=== PATIENT | female | born 1980 | race Caucasian/White ===

== ENCOUNTER 2020-02-28 08:10 | Outpatient (REF) | payer OTHER, SELFPAY ==
[2020-02-28 09:18] LABS: MANUAL DIFF FLAG NO
[2020-02-28 09:33] LABS: Basophils Percent Auto 0.3 % (0-2); Eosinophils Absolute Auto 0.1 X10*3/uL (0.0-0.4); Eosinophils Percent Auto 1.7 % (0-4); Hematocrit 39.4 % (37-47); Hemoglobin 13.3 g/dl (12.0-16.0); Imm Gran Abs Auto 0.01 X10*3/uL (0.00-0.03); Imm Gran Pct Auto 0.2 % (0.0-0.4); Lymphocytes Absolute Auto 1.9 X10*3/uL (1.2-4.9); Lymphocytes Percent Auto 31.3 % (20-40); Mean Corpuscular HGB Conc 33.8 g/dl (31.0-35.0); Mean Corpuscular Hemoglobin 30.8 pg (27.0-33.0); Mean Corpuscular Volume 91.2 fL (80-98); Mean Platelet Volume 10.5 fL (9.4-12.3); Monocytes Absolute Auto 0.4 X10*3/uL (0.1-1.2); Monocytes Percent Auto 7.2 % (2-11); Neutrophils Absolute Auto 3.5 X10*3/uL (2.0-8.3); Neutrophils Percent Auto 59.3 % (45-73); Platelet Count 270 X10*3/uL (160-400); Red Blood Count 4.32 X10*6/uL (4.20-5.50); Red Cell Distribution Width 12.7 % (11.0-16.0)
[2020-02-28 09:56] LABS: Alanine Aminotransferase 13 U/L (0-31); Albumin Level 3.8 g/dL (3.5-5.0); Alkaline Phosphatase 58 U/L (39-117); Anion Gap 11 (12-20); Aspartate Amino Transferase 16 U/L (5-31); Blood Urea Nitrogen 12 mg/dL (9-16); Calcium 8.5 mg/dL (8.4-10.2); Carbon Dioxide 26 mmol/L (22-29); Chloride 104 mmol/L (96-108); Cholesterol 184 mg/dL; Estimated Glomerular Filt Rate > 60; Glucose Fasting 81 mg/dL (60-99); HDL Cholesterol 75 mg/dL; LDL Cholesterol Calculated 101 mg/dl; Potassium 4.4 mmol/l (3.3-5.1); Sodium 137 mmol/L (135-145); Triglycerides 44 mg/dL
[2020-02-28 10:04] LABS: Free T4 (Free Thyroxine) 0.84 ng/dL (0.71-1.85); Thyroid Stimulating Hormone 2.36 uIU/mL (0.32-4.0)
== END 2020-02-28 08:11 | disposition home or self-care (01) ==
LOC: HO.LAB 08:10
PROVIDERS: PCP Internal Medicine; Visit Provider Internal Medicine
DX: E07.9 Disorder of thyroid, unspecified (principal); Z00.00 Encounter for general adult medical examination without abnormal findings
CPT/HCPCS: 36415; 80053; 80061; 84439; 84443; 85025

== ENCOUNTER 2020-04-06 14:23 | Outpatient (REF) | payer OTHER, SELFPAY ==
[2020-04-06 15:22] LABS: C Reactive Protein 0.26 mg/dL (< or = 0.50)
[2020-04-06 15:45] LABS: Vitamin D 25-OH Total 47.3 ng/mL (>30)
[2020-04-06 18:54] LABS: Vitamin B12 637 pg/mL (200-900)
== END 2020-04-06 14:24 | disposition home or self-care (01) ==
LOC: HO.LAB 14:23
PROVIDERS: PCP Internal Medicine; Visit Provider Internal Medicine
DX: R53.83 Other fatigue (principal); R53.1 Weakness
CPT/HCPCS: 36415; 82306; 82607; 86140

== ENCOUNTER 2020-06-26 12:01 | Outpatient (REF) | payer OTHER, SELFPAY ==
[2020-06-26 13:45] LABS: MANUAL DIFF FLAG NO
[2020-06-26 13:51] LABS: Basophils Percent Auto 0.3 % (0-2); Eosinophils Absolute Auto 0.1 X10*3/uL (0.0-0.4); Eosinophils Percent Auto 0.8 % (0-4); Hematocrit 37.4 % (37-47); Hemoglobin 12.3 g/dl (12.0-16.0); Imm Gran Abs Auto 0.02 X10*3/uL (0.00-0.03); Imm Gran Pct Auto 0.3 % (0.0-0.4); Lymphocytes Absolute Auto 2.2 X10*3/uL (1.2-4.9); Lymphocytes Percent Auto 30.8 % (20-40); Mean Corpuscular HGB Conc 32.9 g/dl (31.0-35.0); Mean Corpuscular Hemoglobin 30.2 pg (27.0-33.0); Mean Corpuscular Volume 91.9 fL (80-98); Mean Platelet Volume 10.3 fL (9.4-12.3); Monocytes Absolute Auto 0.5 X10*3/uL (0.1-1.2); Monocytes Percent Auto 6.5 % (2-11); Neutrophils Absolute Auto 4.4 X10*3/uL (2.0-8.3); Neutrophils Percent Auto 61.3 % (45-73); Platelet Count 285 X10*3/uL (160-400); Red Blood Count 4.07 X10*6/uL (4.20-5.50); Red Cell Distribution Width 12.3 % (11.0-16.0); White Blood Count 7.1 X10*3/uL (4.8-10.8)
[2020-06-26 14:06] LABS: Anion Gap 11 (12-20); Blood Urea Nitrogen 16 mg/dL (9-16); C Reactive Protein 1.33 mg/dL (< or = 0.50); Calcium 8.7 mg/dL (8.4-10.2); Carbon Dioxide 27 mmol/L (22-29); Chloride 103 mmol/L (96-108); Estimated Glomerular Filt Rate > 60; Glucose Random 74 mg/dL (60-115); Potassium 4.2 mmol/L (3.3-5.1); Sodium 137 mmol/L (135-145)
[2020-06-27 09:31] LABS: Thyroid Peroxidase Antibodies 114 IU/mL (<9)
== END 2020-06-26 12:02 | disposition home or self-care (01) ==
LOC: HO.10HDL 12:01
PROVIDERS: Visit Provider Internal Medicine
DX: E06.9 Thyroiditis, unspecified (principal); R49.9 Unspecified voice and resonance disorder
CPT/HCPCS: 36415; 80048; 85025; 86140; 86376

== ENCOUNTER 2020-07-03 12:18 | Outpatient (REF) | payer OTHER, SELFPAY ==
--- NOTE | ~2020-07-03 | US_ITS ---
EXAMINATION: US THYROID CLINICAL INFORMATION: Acute thyroiditis. COMPARISON: Nuclear medicine thyroid uptake scan dated 12/02/2016. TECHNIQUE: Linear transducer grayscale and color Doppler examination with attention to the region of the thyroid. FINDINGS: SIZE: Measurements of the thyroid lobes and nodules are given in sagittal, anteroposterior and transverse dimensions respectively. Right Thyroid Lobe: 4.3 x 1.5 x 1.1 cm, volume 3.8 mL. Parenchyma: The gland echotexture is homogeneous. Thyroid vascularity is normal. Left Thyroid Lobe: 4.6 x 1.5 x 1.2 cm, volume 4.2 mL. Parenchyma: The gland echotexture is homogeneous. Thyroid vascularity is normal. Isthmus: 0.2 cm in maximum AP dimension. No focal thyroid nodule is seen. NODES: No lymphadenopathy is seen in the tissue surrounding the thyroid gland. US/US thyroid IMPRESSION: Homogeneous thyroid parenchyma with normal vascularity. No thyroid nodule or thyromegaly.
== END 2020-07-03 12:19 | disposition home or self-care (01) ==
LOC: HO.US 12:18
PROVIDERS: PCP Internal Medicine; Visit Provider Internal Medicine
DX: E06.0 Acute thyroiditis (principal)
CPT/HCPCS: 76536

== ENCOUNTER 2021-09-12 08:29 | Outpatient (REF) | payer OTHER, SELFPAY ==
[2021-09-12 08:42] LABS: MANUAL DIFF FLAG NO
[2021-09-12 09:56] LABS: Basophils Percent Auto 0.5 % (0-2); Eosinophils Absolute Auto 0.2 X10*3/uL (0.0-0.4); Eosinophils Percent Auto 2.7 % (0-4); Hematocrit 38.8 % (37.0-47.0); Hemoglobin 12.9 g/dl (12.0-16.0); Imm Gran Abs Auto 0.01 X10*3/uL (0.00-0.03); Imm Gran Pct Auto 0.2 % (0.0-0.4); Lymphocytes Absolute Auto 1.6 X10*3/uL (1.2-4.9); Lymphocytes Percent Auto 29.4 % (20-40); Mean Corpuscular HGB Conc 33.2 g/dl (31.0-35.0); Mean Corpuscular Hemoglobin 30.1 pg (27.0-33.0); Mean Corpuscular Volume 90.7 fL (80.0-98.0); Mean Platelet Volume 10.3 fL (9.4-12.3); Monocytes Absolute Auto 0.4 X10*3/uL (0.1-1.2); Monocytes Percent Auto 7.4 % (2-11); Neutrophils Absolute Auto 3.3 x10*3/uL (2.0-8.3); Neutrophils Percent Auto 59.8 % (45-73); Platelet Count 285 X10*3/uL (160-400); Red Blood Count 4.28 X10*6/uL (4.20-5.50); Red Cell Distribution Width 12.8 % (11.0-16.0); White Blood Count 5.5 X10*3/uL (4.8-10.8)
[2021-09-12 10:46] LABS: Alanine Aminotransferase 10 U/L (0-31); Albumin Level 3.9 g/dL (3.5-5.0); Alkaline Phosphatase 73 U/L (39-117); Anion Gap 11 (12-20); Aspartate Amino Transferase 14 U/L (5-31); Bilirubin Total 1.1 mg/dL (0.0-1.0); Blood Urea Nitrogen 13 mg/dL (9-16); Calcium 8.8 mg/dL (8.4-10.2); Carbon Dioxide 25 mmol/L (22-29); Chloride 109 mmol/L (96-108); Cholesterol 190 mg/dL; Estimated Glomerular Filt Rate > 60; Glucose Fasting 84 mg/dL (60-99); HDL Cholesterol 66 mg/dL; LDL Cholesterol Calculated 114 mg/dl; Potassium 4.2 mmol/L (3.3-5.1); Sodium 141 mmol/L (135-145); Total Protein 7.2 g/dL (6.5-8.0); Triglycerides 53 mg/dL
[2021-09-12 10:47] LABS: Thyroid Stimulating Hormone 1.89 uIU/mL (0.32-4.0); Vitamin D 25-OH Total 38.7 ng/mL (>30)
[2021-09-13 19:31] LABS: Thyroid Peroxidase Antibodies 105 IU/mL (<9)
== END 2021-09-12 08:30 | disposition home or self-care (01) ==
LOC: HO.LAB 08:29
PROVIDERS: PCP Internal Medicine; Visit Provider Internal Medicine
DX: Z00.00 Encounter for general adult medical examination without abnormal findings (principal); E06.9 Thyroiditis, unspecified
CPT/HCPCS: 36415; 80053; 80061; 82306; 84443; 85025; 86376

== ENCOUNTER 2022-01-30 14:38 | Outpatient (REF) | payer OTHER, SELFPAY ==
[2022-01-30 15:36] LABS: Influenza A PCR POSITIVE (Negative); Influenza B PCR NEGATIVE (Negative); Resp Syncy Virus RNA Qual PCR NEGATIVE (Negative); SARS COV2 PCR INHOUSE NEGATIVE (Negative)
== END 2022-01-30 14:39 | disposition home or self-care (01) ==
LOC: HO.LNP 14:38
PROVIDERS: Visit Provider Internal Medicine
DX: Z20.822 Contact with and (suspected) exposure to COVID-19 (principal); R50.9 Fever, unspecified
CPT/HCPCS: 0241U

== ENCOUNTER 2023-05-19 15:27 | Outpatient (REF) | payer OTHER, SELFPAY ==
[2023-05-19 17:03] LABS: Influenza A PCR NEGATIVE (Negative); Influenza B PCR NEGATIVE (Negative); Resp Syncy Virus RNA Qual PCR NEGATIVE (Negative); SARS COV2 PCR INHOUSE NEGATIVE (Negative)
== END 2023-05-19 15:28 | disposition home or self-care (01) ==
LOC: HO.LNP 15:27
PROVIDERS: Visit Provider Internal Medicine
DX: Z11.52 Encounter for screening for COVID-19 (principal); Z20.822 Contact with and (suspected) exposure to COVID-19; R05.9 Cough, unspecified; R53.83 Other fatigue
CPT/HCPCS: 0241U

== ENCOUNTER 2023-05-19 15:29 | Outpatient (REF) | payer OTHER, SELFPAY ==
[2023-05-19 15:50] LABS: MANUAL DIFF FLAG NO
[2023-05-19 16:51] LABS: Basophils Percent Auto 0.6 % (0-2); Eosinophils Absolute Auto 0.1 X10*3/uL (0.0-0.4); Eosinophils Percent Auto 2.2 % (0-4); Hematocrit 39.2 % (37.0-47.0); Hemoglobin 13.2 g/dl (12.0-16.0); Imm Gran Abs Auto 0.01 X10*3/uL (0.00-0.03); Imm Gran Pct Auto 0.2 % (0.0-0.4); Lymphocytes Absolute Auto 1.6 X10*3/uL (1.2-4.9); Lymphocytes Percent Auto 24.3 % (20-40); Mean Corpuscular HGB Conc 33.7 g/dl (31.0-35.0); Mean Corpuscular Hemoglobin 29.9 pg (27.0-33.0); Mean Corpuscular Volume 88.7 fL (80.0-98.0); Mean Platelet Volume 10.2 fL (9.4-12.3); Monocytes Absolute Auto 0.4 X10*3/uL (0.1-1.2); Monocytes Percent Auto 6.5 % (2-11); Neutrophils Absolute Auto 4.3 x10*3/uL (2.0-8.3); Neutrophils Percent Auto 66.2 % (45-73); Platelet Count 321 X10*3/uL (160-400); Red Blood Count 4.42 X10*6/uL (4.20-5.50); Red Cell Distribution Width 12.7 % (11.0-16.0); White Blood Count 6.5 X10*3/uL (4.8-10.8)
[2023-05-19 17:19] LABS: Anion Gap 11 (12-20); Blood Urea Nitrogen 11 mg/dL (9-16); Calcium 9.2 mg/dL (8.4-10.2); Carbon Dioxide 25 mmol/L (22-29); Chloride 104 mmol/L (96-108); Cholesterol 189 mg/dL (<200); Estimated Glomerular Filt Rate > 60; Glucose Random 70 mg/dL (60-115); HDL Cholesterol 67 mg/dL (>40); LDL Cholesterol Calculated 111 mg/dL (<100); Potassium 3.9 mmol/L (3.3-5.1); Sodium 136 mmol/L (135-145); Triglycerides 56 mg/dL (<150)
[2023-05-19 17:34] LABS: Free T4 (Free Thyroxine) 0.87 ng/dL (0.71-1.85); Thyroid Stimulating Hormone 0.93 uIU/mL (0.32-4.0); Vitamin D 25-OH Total 41.5 ng/mL (>30)
[2023-05-20 22:19] LABS: Thyroid Peroxidase Antibodies 118 IU/mL (<9)
== END 2023-05-19 15:30 | disposition home or self-care (01) ==
LOC: HO.LAB 15:29
PROVIDERS: Visit Provider Internal Medicine
DX: E55.9 Vitamin D deficiency, unspecified (principal); J30.1 Allergic rhinitis due to pollen; E06.9 Thyroiditis, unspecified
CPT/HCPCS: 36415; 80048; 80061; 82306; 84439; 84443; 85025; 86376

== ENCOUNTER 2024-10-20 09:40 | Outpatient (REF) | payer BC, SELFPAY ==
[2024-10-20 10:51] LABS: MANUAL DIFF FLAG NO
[2024-10-20 11:15] LABS: Hematocrit 36.4 % (37.0-47.0); Hemoglobin 12.1 g/dl (12.0-16.0); Imm Gran Abs Auto 0.02 X10*3/uL (0.00-0.03); Imm Gran Pct Auto 0.3 % (0.0-0.4); Lymphocytes Absolute Auto 1.7 X10*3/uL (1.2-4.9); Mean Corpuscular HGB Conc 33.2 g/dl (31.0-35.0); Mean Corpuscular Hemoglobin 29.2 pg (27.0-33.0); Mean Corpuscular Volume 87.9 fL (80.0-98.0); NRBC Abs Auto 0.000 X10*3/uL (0.0-0.012); NRBC Pct Auto 0.0 /100WBC (0.0-0.2); Platelet Count 273 X10*3/uL (160-400); Red Blood Count 4.14 X10*6/uL (4.20-5.50); White Blood Count 5.9 X10*3/uL (4.8-10.8)
[2024-10-20 11:35] LABS: Hemoglobin A1C 109.4311 umol/L; Total Hemoglobin (HGBA1C) 3299.5053 umol/L
[2024-10-20 11:46] LABS: Alanine Aminotransferase 12 U/L (0-31); Albumin Level 4.1 g/dL (3.5-5.0); Alkaline Phosphatase 77 U/L (39-117); Anion Gap 13 (12-20); Aspartate Amino Transferase 18 U/L (5-31); Blood Urea Nitrogen 12 mg/dL (9-16); Calcium 8.5 mg/dL (8.4-10.2); Carbon Dioxide 25 mmol/L (22-29); Chloride 105 mmol/L (96-108); Cholesterol 199 mg/dL (<200); Estimated Glomerular Filt Rate > 60; HDL Cholesterol 64 mg/dL (>40); Potassium 3.7 mmol/L (3.3-5.1); Sodium 139 mmol/L (135-145); Total Protein 7.4 g/dL (6.5-8.0); Triglycerides 65 mg/dL (<150)
[2024-10-20 12:06] LABS: Folate 10.4 ng/mL (> or = 4.0); Vitamin B12 427 pg/mL (200-900)
[2024-10-25 15:48] LABS: Vitamin D 25-OH, D2 <4 ng/mL; Vitamin D 25-OH, D3 40 ng/mL; Vitamin D 25-OH, Total 40 ng/mL (30-100)
[2024-10-27 16:48] LABS: Testosterone, Free 1.5 pg/mL (0.1-6.4)
[2024-11-01 07:44] LABS: Estradiol Ultra Sensitive 134 pg/mL
== END 2024-10-20 09:41 | disposition home or self-care (01) ==
LOC: HO.LAB 09:40
PROVIDERS: PCP Internal Medicine; Visit Provider Internal Medicine
DX: Z00.00 Encounter for general adult medical examination without abnormal findings (principal); E28.2 Polycystic ovarian syndrome; F32.81 Premenstrual dysphoric disorder; R53.83 Other fatigue; R35.89 Other polyuria; E06.9 Thyroiditis, unspecified; Z13.0 Encounter for screening for diseases of the blood and blood-forming organs and certain disorders involving the immune mechanism; Z13.220 Encounter for screening for lipoid disorders; Z13.1 Encounter for screening for diabetes mellitus
CPT/HCPCS: 36415; 80053; 80061; 82306; 82607; 82670; 82746; 83002; 83036; 84402; 84403; 84443; 85025

== ENCOUNTER 2024-10-20 09:40 | Outpatient (AMB) | payer BC, SELFPAY ==
--- NOTE | 2024-10-20 09:44 | A.OFFPC_ITS ---
Vital Signs 10/20/24 09:56 10/20/24 10:00 Height 5 ft 4.5 in Weight 172 lb BP 122/72 Blood Pressure Location Lt brachial Position Sitting Respiration 16 Pulse 57 Pulse Source Pulse Oximeter Temp 97.2 F Temp Source Temporal Artery Scan Pulse Oximetry (%) 99 Oxygen Delivery Method Room Air Intake Visit Reasons: Annual Compress Trucker Required: No Accompanied by: Self / Same As Patient Allergies Seasonale Allergy (Mild, Uncoded 10/20/24 09:58) Watery Eye shellfish Allergy (Mild, Uncoded 10/20/24 09:58) lip swelling Tobacco use date assessed: 10/20/24 HPI HPI Comments History of Present Illness Details The patient is a 44 year old female with a past medical history of thyroiditis, vitamin D deficiency, PCOS, rash, presenting for annual exam. History of abnormal TFTs. Gets mammo at [place]-September 2023 [facility]. Jan 2024 ROS CONSTITUTIONAL: Denies weight loss, fever and chills. HEENT: Denies changes in vision and hearing. RESPIRATORY: Denies SOB and cough. CV: Denies palpitations and CP GI: Denies abdominal pain, nausea, vomiting and diarrhea. : Denies dysuria and urinary frequency. MSK: Denies new myalgia and joint pain. SKIN: Denies rash and pruritus. NEUROLOGICAL: Denies headache PSYCHIATRIC: Denies recent changes in mood. PHYSICAL EXAM: GENERAL: Alert and oriented x 3. NAD EYES: EOMI. Anicteric. HENT: Moist mucous membranes. No scleral icterus. No cervical lymphadenopathy. LUNGS: Clear to auscultation bilaterally. CARDIOVASCULAR: Regular rate and rhythm. No murmur. No JVD. ABDOMEN: Soft, non-tender +bs EXTREMITIES: No edema. Non-tender. SKIN: No rashes or lesions. Warm. NEUROLOGIC: No focal neurological deficits. CN II-XII grossly intact PSYCHIATRIC: Cooperative. Appropriate mood and affect [facility] Social History Patient Tobacco Use Status: Never used Tobacco e-Cigarette/Vaping Use: Never Used Questionnaire AUDIT C Alcohol Use Questionnaire (AUDIT-C) 1. How often do you have a drink containing alcohol?: Never Total Score: 0 Physical exam (Primary Care) Vital Signs: Last Vital Signs Temp 97.2 F 10/20/24 10:00 Pulse 57 10/20/24 10:00 Resp 16 10/20/24 10:00 BP 122/72 10/20/24 10:00 Pulse Ox 99 10/20/24 10:00 Oxygen Delivery Method Room Air 10/20/24 10:00 Tobacco/Smoking Status: Tobacco use Status Tobacco use date assessed 10/20/24 10/20/24 09:45 Patient Tobacco Use Status Never used Tobacco 10/20/24 10:02 e-Cigarette/Vaping Use Never Used 10/20/24 09:45 Coding Level of Care Code New Pt Prev Care 40-64y(70313) Diagnoses Physical exam Z00.00 PCOS (polycystic ovarian syndrome) E28.2 Assessment & Plan Assessment & Plan (1) Physical exam: Code(s): Z00.00 - Encounter for general adult medical examination without abnormal findings (2) PCOS (polycystic ovarian syndrome): Code(s): E28.2 - Polycystic ovarian syndrome Category: Medical Plan CPE/establish care Past medical, surgical, social reviewed Worsened premenstrual symptoms Preventive measures for age discussed Labs ordered Orders: Orders TSH reflex Free T4 10/20/24 E06.9 - Thyroiditis, unspecified, E28.2 - Polycystic ovarian syndrome, F32.81 - Premenstrual dysphoric disorder, R35.89 - Other polyuria, R53.83 - Other fatigue, Z13.0 - Encounter for screening for diseases of the blood and blood-forming organs and certain disorders involving the immune mechanism, Z13.220 - Encounter for screening for lipoid disorders Estradiol Ultra Sensitive 10/20/24 E06.9 - Thyroiditis, unspecified, E28.2 - Polycystic ovarian syndrome, F32.81 - Premenstrual dysphoric disorder, R35.89 - Other polyuria, R53.83 - Other fatigue, Z13.0 - Encounter for screening for diseases of the blood and blood-forming organs and certain disorders involving the immune mechanism, Z13.220 - Encounter for screening for lipoid disorders Lutenizing Hormone 10/20/24 E06.9 - Thyroiditis, unspecified, E28.2 - Polycystic ovarian syndrome, F32.81 - Premenstrual dysphoric disorder, R35.89 - Other polyuria, R53.83 - Other fatigue, Z13.0 - Encounter for screening for diseases of the blood and blood-forming organs and certain disorders involving the immune mechanism, Z13.220 - Encounter for screening for lipoid disorders Testosterone, Free/Total 10/20/24 E06.9 - Thyroiditis, unspecified, E28.2 - Polycystic ovarian syndrome, F32.81 - Premenstrual dysphoric disorder, R35.89 - Other polyuria, R53.83 - Other fatigue, Z13.0 - Encounter for screening for diseases of the blood and blood-forming organs and certain disorders involving the immune mechanism, Z13.220 - Encounter for screening for lipoid disorders Vitamin B12 and Folate 10/20/24 E06.9 - Thyroiditis, unspecified, E28.2 - Polycystic ovarian syndrome, F32.81 - Premenstrual dysphoric disorder, R35.89 - Other polyuria, R53.83 - Other fatigue, Z13.0 - Encounter for screening for diseases of the blood and blood-forming organs and certain disorders involving the immune mechanism, Z13.220 - Encounter for screening for lipoid disorders Complete Blood Count Auto Diff 10/20/24 E06.9 - Thyroiditis, unspecified, E28.2 - Polycystic ovarian syndrome, F32.81 - Premenstrual dysphoric disorder, R35.89 - Other polyuria, R53.83 - Other fatigue, Z13.0 - Encounter for screening for diseases of the blood and blood-forming organs and certain disorders involving the immune mechanism, Z13.220 - Encounter for screening for lipoid disorders Comprehensive Met. Panel 10/20/24 E06.9 - Thyroiditis, unspecified, E28.2 - Polycystic ovarian syndrome, F32.81 - Premenstrual dysphoric disorder, R35.89 - Other polyuria, R53.83 - Other fatigue, Z13.0 - Encounter for screening for diseases of the blood and blood-forming organs and certain disorders involving the immune mechanism, Z13.220 - Encounter for screening for lipoid disorders Hemoglobin A1c 10/20/24 E06.9 - Thyroiditis, unspecified, E28.2 - Polycystic ovarian syndrome, F32.81 - Premenstrual dysphoric disorder, R35.89 - Other polyuria, R53.83 - Other fatigue, Z13.0 - Encounter for screening for diseases of the blood and blood-forming organs and certain disorders involving the immune mechanism, Z13.220 - Encounter for screening for lipoid disorders Vitamin D 25-OH (D2 and D3) 10/20/24 E06.9 - Thyroiditis, unspecified, E28.2 - Polycystic ovarian syndrome, F32.81 - Premenstrual dysphoric disorder, R35.89 - Other polyuria, R53.83 - Other fatigue, Z13.0 - Encounter for screening for diseases of the blood and blood-forming organs and certain disorders involving the immune mechanism, Z13.220 - Encounter for screening for lipoid disorders Lipid Panel 10/20/24 Z13.220 - Encounter for screening for lipoid disorders MM tomosynthesis screening BI 10/20/24 Z12.31 - Encounter for screening mammogram for malignant neoplasm of breast Referrals Gastroenterology Referral Z12.11 - Encounter for screening for malignant neoplasm of colon
[2024-10-20 10:00] VITALS: BP 122/72; PULSE 57; RESP 16; TEMP 36.2; O2SAT 99
--- OUTSIDE RECORDS SUMMARY | 2024-10-20 10:06 | XMS_ITS | Clinical Summary ---
Author Organization [facility] [address] [facility] Address [address] [place] [address] Phone Care Team Providers Care Maid Supervisor Name Role Phone Darin Cifuentes MD Primary Care Provider [phone] Allergies Active Allergy Reactions Criticality Noted Date Comments Apple Itching 05/26/2008 Nut - Unspecified Itching Low 09/11/2005 Shellfish Containing Products High 2018 Shrimp Swelling High 05/26/2008 lips [place] Itching Low 09/11/2005 Medications cholecalciferol (VITAMIN D-3) 25 mcg (1,000 unit) tablet Take by mouth. Active EPINEPHrine (EPIPEN-JR) 0.15 mg/0.3 mL injection Inject 0.3 mL into the muscle as needed for Anaphylaxis . 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 Overview (12/21/2023): IMO update Immunizations Name Administration Dates Next Due H1N1 Inj Preservative Free 03/01/2009 Influenza trivalent, 0.5mL, preservative free (Fluarix; FluLaval; Fluzone) ages 6mo and older (Afluria) 3 years and older 12/31/2011 Influenza trivalent, with pr eservative (Fluzone; Afluria) 6mo and older 01/22/2008,01/04/2007,02/18/2006 PPD Test 10/31/2008 Tdap Tetanus diptheria acell ular pertussis (Boostrix; Adacel) 7yo and older 01/04/2007 Medical History Medical History Date Comments Irregular menstrual cycle 01/04/2007 DX:Irr egular menstrual cycle Polycystic ovaries 01/04/2007 DX:Polycystic ovaries Unspecified disease of pharynx 02/18/2006 D X:Unspecified disease of pharynx Family History Medical History Relation Name Comments Other: Other Daughter 1 2017. age 11yo, hx CP, medical complications Diabetes Father insulin requiri ng Hypertension Father Other: Kidney failure Father due to diabetes Stroke Father at afe 58 Diabetes Mother insulin requiri ng Hypertension Mother Breast cancer Neg Hx Colon cancer Neg Hx Kidney cancer Neg Hx Ovarian cancer Neg Hx Pancreatic cancer Neg Hx Uterine cancer Neg Hx Relation Name Status Comments Daughter 1 Daughter 2 (Age 11) unexpected , unknown cause, hx CP, born at 24wks Father Mother Social History Tobacco Use Types Packs/Day Years Used Date Smoking Tobacco: Never Smokeless Tobacco: Never Alcohol Use Standard Drinks/Week Comments No 0 (1 standard drink = 0.6 oz pur e alcohol) Housing Instability Answer Date Recorde d Are you worried that in the next 2 months you may not have stable housing? No 01/28/2024 Food Access & Nutrition Answer Date Rec orded Do you have access to a vari ety of food including fruits and vegetables? Yes 01/28/2024 Access to Healthcare Answer Date Record ed Within the last 3 months, ho w many times did you visit the emergency department for your medical care? 0 01/28/2024 Health Literacy Answer Date Recorded How often do you need to hav e someone help you when you read instructions, pamphlets, or other written material from your doctor or pharmacy? Never 01/28/2024 Caregiver: How often do you need to have someone help you when you read instructions, pamphlets, or other written material from your doctor or pharmacy? Not on file 01/28/2024 Financial Risk Answer Date Recorded How hard is it for you to pa y for the very basics like food, housing, medical care, and air conditioning / heating? Hard 01/28/2024 Transportation Answer Date Recorded Has the lack of transportati on kept you from meetings, work, or from getting things needed for daily living? No 11/14/202 4 Has the lack of transportati on kept you from medical appointments or from getting medications? No 01/28/2024 Social Isolation Answer Date Recorded How often do you feel lonely or isolated from th ose around you? Never 01/28/2024 Food Risk Answer Date Recorded Within the past 12 months we worried whether our food would run out before we got money to buy more. Never true 01/28/2024 Within the past 12 months th e food we bought just didn't last and we didn't have money to get more. Never true 01/28/2024 Dependent Care Answer Date Recorded Do you need help finding or paying for care for your loved ones. For example, childcare administrator or elderly care for an older adult? No 01/28/2024 Education Answer Date Recorded Do you think completing more education or training, like finishing a GED, going to college, or learning a trade, would be helpful for you? No 01/28/2024 Employment and Income Answer Date Recor ded During the last four weeks, have you been actively looking for work? No 01/28/2024 Living Situation Answer Date Recorded What is your living situation? 1 03/29/2023 Comments No Sex and Gender Information Value Date Recorded Sex Assigned at Female 01/18/2024 1:55 PM EST Legal Sex Female 6:35 AM EST Gender Identity Female 01/18/2024 1:55 PM EST Sexual Orientation Not on file Obstetrics History Para Term AB IAB SAB Ectopic Multiple Livin g Live Births 3 3 2 1 2 3 Date Outcome GA Total Labor Labor/2nd/3rd Weight Sex Type Anes PTL Ofelia A1 A5 Name Clin 07/2004 24w 0d 680 g (24 oz) F Vag-S pont Decea sed Delivery Location:[facility] Comments:Incompetent c ervix,cerclage 010 Term 38w 0d 3033 g (107 oz) F Vag-S pont Livin g Delivery Location:[facility] Comments:cerclage 013 Term 38w 5d 11h 53m/ 3192 g (112.6 oz) F [facility] Comments:cerclage,gdm Last Filed Vital Signs Vital Sign Reading Time Taken Comments Blood Pressure 120/85 01/29/2024 8:23 AM EST Pulse 59 01/29/2024 8:23 AM EST Temperature - - Respiratory Rate 16 01/29/2024 8:23 AM EST Oxygen Saturation - - Inhaled Oxygen Concentration - - Weight 80 kg (176 lb 6.4 oz) 01/29/2024 8:23 AM EST Height 162.6 cm (5' 4 ) 01/29/2024 8:23 AM EST Body Mass Index 30.28 01/29/2024 8:23 AM EST Plan of Treatment Health Maintenance Due Date Last Done Comments Hepatitis B Vaccines (1 of 3 - 19+ 3-dose series) 1998 DTaP,Tdap,and Td Vaccines (2 - Td or Tdap) 01/04/2017 01/04/2007 Colorectal Cancer Screening: Colonoscopy 02/22/2022 Hepatitis C Screening 02/22/2022 COVID-19 Vaccine ( season) 2023 06/21/2020, 05/31/2020 Depression Screening 03/16/2024 Influenza Vaccine (#1) 2024 2, 03/01/2009, 01/22/2008, Additional history exists Social Influencers of Health Screening 01/27/2025 01/28/2024 Breast Cancer Screening 10/12/2025 10/13/19 24, 08/27/2022, 08/22/2021, Additional history exists Cervical Cancer Screening: HPV 01/28/2029 01/29/2024, 05/23/2016 HIV Screening Completed 08/29/2011 HIB Vaccines Aged Out No longer eligi ble based on patient's age to complete this topic HPV Vaccines Aged Out No longer eligi ble based on patient's age to complete this topic Hepatitis A Vaccines Aged Out No long er eligible based on patient's age to complete this topic IPV Vaccines Aged Out No longer eligi ble based on patient's age to complete this topic MMR Vaccines Aged Out No longer eligi ble based on patient's age to complete this topic Meningococcal ACWY Vaccine Aged Out N o longer eligible based on patient's age to complete this topic Meningococcal B Vaccine Aged Out No l onger eligible based on patient's age to complete this topic Pneumococcal Vaccine: Pediatrics (0 to 5 Years) and At-Risk Patients (6 to 49 Years) Aged Out No longer eligible based on patient's age to complete this topic RSV Immunization Patients Under 20 months Aged Out No longer eligible based on patient's age to complete this topic Varicella Vaccines Aged Out No longer eligible based on patient's age to complete this topic Procedures Procedure Name Priority Date/Time Associated Diagnosis Comments HPV WITH REFLEX GENOTYPE Routine 01/29/2024 8:47 AM EST Women's annual routine gynecological examination [facility] SCREENING DIGITAL Routine 10/13/2023 7:37 AM EDT Encounter for screening mammogram for malignant neoplasm of breast HIV SCREENING Routine 08/29/2011 from Last 3 Months or Most Recently Relevant to Health Maintenance Results * HPV with reflex genotype (01/29/2024 8:47 AM EST) HPV Negative Negative LAB MICROBIOLOGY METHOD 02/02/2024 8:23 AM EST [facility] Brushing/Spatula Cervix uteri structure / Unknown 01/29/2024 8:47 AM EST 02/01/2024 9:12 AM EST [facility] MOLECULAR DIAGNOSTICS O RDERABLES Final Result [facility] [address] [place] [address], * [facility] SCREENING DIGITAL (10/13/2023 7:37 AM EDT) Anatomical Region Laterality Modality Mammography 10/09/2023 1:37 PM EDT Narrative 10/13/2023 7:37 AM EDT [facility] Diagnostic Imaging Department [address], [place] [id number] Patient: COLIN HAN.O.B./Age/Sex: 1980 - 43 - F Unit#: [id number] Location/Status: SPDIMA/REG CLI Mnemonic/Ordering Site: [facility] Ordering Physician: DARIN CIFUENTES MD Glenda Screening Digital - 10/09/23 - 1407 Report Status:Signed HISTORY: The patient is a 43-year-old female presenting for routine screening mammography. FINDINGS: Full-field digital mammography of the breasts bilaterally consisting of tomosynthesis in MLO and CC projection is performed in the 2smse 2000-D unit. Computer aided detection utilizing the iCAD system was utilized. The breasts are again seen to be composed of a combination of fatty and fibroglandular elements (scattered areas of fibroglandular density, category B density as calculated with [employer] / cTrader Volpara software), as also demonstrated on previous outside mammograms performed 08/27/2022, 08/22/2021, and 08/21/2019. Multiple punctate and rim type calcifications inferiorly in the left breast, most if not all of which are dermal, are without suspicious interval change. There is no suspicious cluster of microcalcifications, mass, or area of architectural distortion. There is no skin thickening or nipple retraction. IMPRESSION: No mammographic evidence of malignancy. A negative mammogram in the presence of a clinically suspicious palpable abnormality does not preclude the possibility of malignancy or alter the indications for biopsy. BIRADS Code Class 2: Benign Finding PQRI CPT II 3342F Code 53183, 52738 PQRI 225 CPT II 7025F Dictating Physician: NAN CAVAZOS MD Electronically Signed by: NAN CAVAZOS MD Dic Date/Time: 10/13/23730 Sign date/Time: 10/13/23736 Procedure Note Nan Cavazos MD - 12/30/2023 [facility] Diagnostic Imaging Department [address] [place] [id number] Patient: COLIN HAN D.O.B./Age/Sex: 1980 - 43 - F Unit#: [id number] Location/Status: SPDIMAM/REG CLI Mnemonic/Ordering Site: [facility] Ordering Physician: DARIN CIFUENTES MD Glenda Screening Digital - 10/09/23 - 1407 Report Status:Signed HISTORY: The patient is a 43-year-old female presenting for routinescreening mammography. FINDINGS: Full-field digital mammography of the breasts bilaterallyconsisting of tomosynthesis in MLO and CC projection is performed in the [employer] 2000-D unit. Computer aided detection utilizing the iCAD system wasutilized. The breasts are again seen to be composed of a combination of fatty and fibroglandular elements (scattered areas of fibroglandular density,category B density as calculated with [employer] / c[employer]ader Volpara software), as also demonstratedon previous outside mammograms performed 08/27/2022, 08/22/2021, and 08/21/2019. Multiple punctate and rim type calcifications inferiorly in the leftbreast, most if not all of which are dermal, are without suspicious intervalchange. There is no suspicious cluster of microcalcifications, mass, or area of architectural distortion. There is no skin thickening or nippleretraction. IMPRESSION: No mammographic evidence of malignancy. A negative mammogram in the presence of a clinically suspicious palpable abnormality does not preclude the possibility of malignancy or alter the indications for biopsy. BIRADS Code Class 2: Benign Finding PQRI CPT II 3342F Code 21490, 23250 PQRI 225 CPT II 7025F Dictating Physician: NAN CAVAZOS MD Electronically Signed by: NAN CAVAZOS MD Dic Date/Time: 10/13/23730 Sign date/Time: 10/13/23 0737 Darin Cifuentes MD IMG BI PROCEDURES Final Resul t * Hm HIV Screening (08/29/2011) HIV Screening Abstracted us Historical Provider HEALTH MAINTENANCE Final Result from Last 3 Months or Most Recently Relevant to Health Maintenance Insurance [facility] Care Teams Maid Supervisor Relationship Specialty Start Date End Date Darin Cifuentes MD [address] [place] [address] Dr Parada [place], [place] PCP - General Internal Medicine 12/10/18
== END 2024-10-20 10:23 | disposition home or self-care (01) ==
LOC: HO.HMCHD 09:40
PROVIDERS: PCP Internal Medicine; Visit Provider Internal Medicine
DX: Z00.00 Encounter for general adult medical examination without abnormal findings (principal); E28.2 Polycystic ovarian syndrome

== ENCOUNTER 2024-12-13 15:59 | Outpatient (REF) | payer BC, SELFPAY ==
--- OUTSIDE RECORDS SUMMARY | 2024-12-13 17:03 | XMS_ITS | Clinical Summary ---
Author Organization [facility] 230 [facility] Address [address] [place] [address] Phone Care Team Providers Care Heading Up Machine Operator Name Role Phone Darin Cifuentes MD Primary Care Provider [phone] Allergies Active Allergy Reactions Criticality Noted Date Comments Apple Itching 05/26/2008 Nut - Unspecified Itching Low 09/11/2005 Shellfish Containing Products High 2018 Shrimp Swelling High 05/26/2008 lips [place] Itching Low 09/11/2005 Medications cholecalciferol (VITAMIN D-3) [...] pharynx 02/18/2006 Overview (12/21/2023): IMO update Immunizations Immunization Administration Dates Next Due H1N1 Inj Preservative [...] care for your loved ones. For example, exceptional children teacher or elderly care for an older adult? [...] Date Recorded What is your living situation? Unrecognized valu e 01/28/2024 Comments No Sex and Gender Information Value [...] oz) F Vag-S pont Decea sed Delivery Location:[facility] Comments:Incompetent c ervix,cerclage 010 Term 38w 0d 3033 g (107 oz) F Vag-S pont Livin g Delivery Location:[facility] Comments:cerclage 013 Term 38w 5d 11h 53m/ 3192 g (112.6 oz) F Vag[facility]S pont [facility] Comments:cerclage,gdm Last Filed Vital Signs Vital [...] Screening: Colonoscopy 02/22/2022 Hepatitis C Screening 02/22/2022 Depression Screening 03/16/2024 COVID-19 Vaccine ( season) 2024 06/21/2020, 05/31/2020 Influenza Vaccine (#1) 2024 2, 03/01/2009, 01/22/2008, [...] AM EST Women's annual routine gynecological examination [facility] SCREENING DIGITAL Routine 10/13/2023 7:37 AM EDT Encounter for screening mammogram for malignant neoplasm of breast HIV SCREENING Routine 08/29/2011 from Last 3 Months or Most Recently Relevant to Health Maintenance Results * HPV with reflex genotype (01/29/2024 8:47 AM EST) HPV Negative Negative LAB MICROBIOLOGY METHOD 02/02/2024 8:23 AM EST [facility] Brushing/Spatula Cervix uteri structure / Unknown 01/29/2024 8:47 AM EST 02/01/2024 9:12 AM EST [facility] MOLECULAR DIAGNOSTICS O RDERABLES Final Result [facility] [address] [place] [address], * [facility] SCREENING DIGITAL (10/13/2023 7:37 AM EDT) Anatomical Region Laterality Modality Mammography 10/09/2023 1:37 PM EDT Narrative 10/13/2023 7:37 AM EDT [facility] Diagnostic Imaging Department [address] [place] [address] Patient: COLIN HANO.B./Age/Sex: 1980 - 43 - F Unit#: [id number] [facility] Ordering Physician: DARIN CIFUENTES MD Glenda Screening Digital - 10/09/23 - 1407 Report Status:Signed HISTORY: The patient is a 43-year-old female presenting for routine screening mammography. FINDINGS: Full-field digital mammography of the breasts bilaterally consisting of tomosynthesis in MLO and CC projection is performed in the [employer] 2000-D unit. Computer aided detection utilizing the iCAD system was utilized. The breasts are again seen to be composed of a combination of fatty and fibroglandular elements (scattered areas of fibroglandular density, category B density as calculated with [employer] Volpara software), as also demonstrated on previous [...] Benign Finding PQRI CPT II 3342F Code 43458, 32452 PQRI 225 CPT II 7025F Dictating Physician: NAN CAVAZOS MD Electronically Signed by: NAN CAVAZOS MD Dic Date/Time: 10/13/23730 Sign date/Time: 10/13/23736 Procedure Note Nan Cavazos MD - 10/16/2024 [facility] Diagnostic Imaging Department [address] [place] [id number] Patient: COLIN HAN D.O.B./Age/Sex: 1980 - 43 - F Unit#: [id number] Location/Status: SPDIMAM/REG CLI Mnemonic/Ordering Site: [facility] Ordering Physician: DARIN CIFUENTES MD Glenda Screening Digital - 10/09/23 - 1407 Report Status:Signed HISTORY: The patient is a 43-year-old female presenting for routinescreening mammography. FINDINGS: Full-field digital mammography of the breasts bilaterallyconsisting of tomosynthesis in MLO and CC projection is performed in the [employer] 2000-D unit. Computer aided detection utilizing the iCAD system wasutilized. The breasts are again seen to be composed of a combination of fatty and fibroglandular elements (scattered areas of fibroglandular density,category B density as calculated with [employer] Volpara software), as also demonstratedon previous outside [...] Benign Finding PQRI CPT II 3342F Code 81603, 85959 PQRI 225 CPT II 7025F Dictating Physician: NAN CAVAZOS MD Electronically Signed by: NAN CAVAZOS MD Dic Date/Time: 10/13/23 0731 Sign date/Time: 10/13/23 0737 Darin Cifuentes MD IMG BI PROCEDURES Final Resul t * Hm HIV Screening (08/29/2011) HIV Screening Abstracted us Historical Provider HEALTH MAINTENANCE Final Result from Last 3 Months or Most Recently Relevant to Health Maintenance Insurance [facility] Care Teams Heading Up Machine Operator Relationship Specialty Start Date End Date Darin Cifuentes MD [address] [place] [address] Dr Parada [place], [place] PCP - General Internal Medicine 12/10/18
== END 2024-12-13 16:00 | disposition home or self-care (01) ==
LOC: HO.MAMMO 15:59
PROVIDERS: PCP Internal Medicine; Visit Provider Internal Medicine
DX: Z12.31 Encounter for screening mammogram for malignant neoplasm of breast (principal)
CPT/HCPCS: 77063; 77067

== ENCOUNTER → 2024-12-13 16:15 | Outpatient (BNV) | payer BC, SELFPAY | PROVIDERS: PCP Internal Medicine; Visit Provider Internal Medicine | DX: Z12.31 Encounter for screening mammogram for malignant neoplasm of breast (principal) | CPT/HCPCS: 77063; 77067 ==

== ENCOUNTER 2025-02-28 15:52 | Outpatient (AMB) | payer BC, SELFPAY ==
--- NOTE | 2025-02-28 15:58 | MHC.OFFVIS ---
Vital Signs 02/28/25 16:01 Height 5 ft 4.5 in Weight 176 lb BMI 29.7 BP 139/73 Blood Pressure Location Lt brachial Position Sitting Pulse 72 Intake Visit Reasons: colo screen Intake Note: New patient in office today for colonoscopy screening. CC: Patient denies having any GI symptoms or concerns today. 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 She is referred by Moira Pham. PMX Allergic rhinitis PCOS ? Thyroiditis Overweight BMI 29 Seafood allergy * SURGICAL HISTORY cervical stitching axillary cyst * ALLERGIES * [facility] LABS: Laboratory Tests 10/20/24 10:49 WBC 5.9 Hgb 12.1 Hct 36.4 L MCV 87.9 MCH 29.2 Plt Count 273 Estimated GFR > 60 Total Bilirubin 1.1 H AST 18 ALT 12 Alkaline Phosphatase 77 TSH 3.30 TODAY'S VISIT First colonoscopy: Yes Bowel or upper GI problems:No Cardiac or respiratory problems: No Problems with anesthesia or sedation:Naive Infectious disease problems: No Family history of colon cancer or polyps:No PFSH Medical History (Updated 02/28/25 @ 16:17 by PALOMA Best) Screening for colon cancer Surgical History (Updated 02/28/25 @ 16:06 by GAIL Martin) H/O total cystectomy History of cervical cerclage Social History (Updated 02/28/25 @ 16:07 by GAIL Martin) Alcohol intake: never Patient Tobacco Use Status: Never used Tobacco e-Cigarette/Vaping Use: Never Used Use of substances other than those prescribed or required for medical reasons: No Review of Systems Const Denies fatigue, Denies fever(s), Denies night sweats, Denies poor appetite and Denies weight loss ENT Reports Normal hearing present, Denies dental pain, Denies dysphagia, Denies hearing loss, Denies mouth pain, Denies odynophagia, Denies throat swelling, Denies tongue swelling and Reports other (Dentition adequate) Card Reports no additional complaints Resp Reports no additional complaints GI Details: ? Stress related Denies abdominal pain, Denies melena, Denies bloating, Denies hematochezia, Denies constipation, Denies GI cramping, Denies dysphagia, Denies excessive flatus, Denies early satiety, Reports dyspepsia, Denies heartburn, Denies diarrhea, Reports loose stools, Denies nausea, Denies odynophagia, Denies vomiting and Denies hematemesis Skin/Breast Denies pruritus, Denies lesions, Denies rash and Denies jaundice Neuro Reports Normal hearing present and Denies Abnormal speech present Endo Denies fatigue Aller/Immun Denies throat swelling and Denies tongue swelling Physical Exam Vital Signs: Last Vital Signs Pulse 72 02/28/25 16:01 BP 139/73 02/28/25 16:01 BMI result Body Mass Index 29.7 Const General: cooperative, no acute distress, well developed and well groomed Nutritional Appearance: well nourished and obese Orientation/consciousness: oriented to person, oriented to place and oriented to time Limitations: No language barrier HEENT Head: Yes normocephalic and Yes atraumatic Eyes General: appearance normal, both eyes and all related structures Pupils: Equal, round and reactive pupils present Neck Neck: Yes normal visual inspection and Yes no lymphadenopathy Thyroid: Thyroid normal Resp Effort & Inspection: normal respiratory effort and able to speak in complete sentences Auscultation: clear to auscultation bilaterally Cardio Rate: regular rate Rhythm: regular rhythm Heart sounds: Normal, physiologic split S2 sound present Peripheral pulses: radial pulses present and posterior tibial pulses present GI Inspection: No distended, No Abdominal panniculus present and Yes obesity Palpation (GI): Soft to palpation, nontender, no guarding, not rigid and No hepatosplenomegaly present Percussion: Yes normal to percussion Auscultation: normal bowel sounds Rectal Exam - Female: deferred Skin General skin exam: no rashes or lesions noted, turgor normal, skin not dry, no jaundice, No spider nevi and no striae Rashes: no rashes Nails: normal Neuro General: oriented to person, oriented to place and oriented to time Cranial nerves: Yes Equal, round and reactive pupils present and Yes Normal hearing present Speech: No Abnormal speech present Extrem General: Yes normal to inspection, No clubbing, No cyanosis and No edema Psych Appearance: grossly normal and well kempt Mental Status: mental status grossly normal Speech and movement: Normal speech and movement present Affect: normal affect Attitude: cooperative Thought process: Normal thought process present and not confabulating Thought content: Normal thought content present Insight: Good insight present (Psych) Judgement: Good judgement present (Psych) Assessment & Plan Assessment & Plan (1) Pre-op examination: Code(s): Z01.818 - Encounter for other preprocedural examination Category: Medical Plan First colonoscopy: Yes Bowel or upper GI problems:No Cardiac or respiratory problems: No Problems with anesthesia or sedation:Naive Infectious disease problems: No Family history of colon cancer or polyps:No Orders: Referrals GI Procedure Notification Z01.818 - Encounter for other preprocedural examination Medications: New peg 3350-electrolytes 236-22.74-6.74 -5.86 gram (Golytely) until fecal effluent is clear; do not exceed a total volume of 2,000 mL 240 mL PO Q10M 4,000 mL 0RF 1 day Z12.11 - Encounter for screening for malignant neoplasm of colon bisacodyl (Dulcolax (bisacodyl)) 10 mg (2 x 5 mg) PO BEDTIME 4 tabs 0RF 2 days Coding Level of Care Code New Pt Level 3 (09829) Diagnoses Pre-op examination Z01.818
[2025-02-28 16:01] VITALS: BP 139/73; PULSE 72; BMI 29.7
--- OUTSIDE RECORDS SUMMARY | 2025-02-28 20:00 | XMS_ITS | Clinical Summary ---
Author Organization [facility] 230 [facility] Address [address] [place] [address] Phone Care Team Providers Care Lead Driver Name Role Phone Darin Cifuentes MD Primary Care Provider [phone] Allergies Active Allergy Reactions Criticality Noted Date Comments Apple Itching 05/26/2008 Nut - Unspecified Itching Low 09/11/2005 Shellfish Containing Products High 2018 Shrimp Swelling High 05/26/2008 lips [place] Itching Low 09/11/2005 Medications cholecalciferol (VITAMIN D-3) [...] care for your loved ones. For example, child specialist or elderly care for an older adult? [...] oz) F Vag-S pont Decea sed Delivery Location:[facility] Comments:Incompetent c ervix,cerclage 010 Term 38w 0d 3033 g (107 oz) F Vag-S pont Livin g Delivery Location:[facility] Comments:cerclage 013 Term 38w 5d 11h 53m/ 3192 g (112.6 oz) F Vag-S pont None [facility] g [facility] Comments:cerclage,gdm Last Filed Vital Signs Vital [...] Health Maintenance Due Date Last Done Comments Colorectal Cancer Screening: Colonoscopy 1980 Hepatitis B Vaccines (1 of 3 - 19+ 3-dose series) 1998 HPV Vaccines (1 - 3-dose SCDM series) 2006 DTaP,Tdap,and Td Vaccines (2 - Td or Tdap) 01/04/2017 01/04/2007 Hepatitis C Screening 02/22/2022 Depression Screening 03/16/2024 COVID-19 Vaccine ( season) 2024 06/21/2020, 05/31/2020 Influenza Vaccine (#1) 2024 2, 03/01/2009, 01/22/2008, Additional history exists Social Influencers of Health Screening 01/27/2025 01/28/2024 Breast Cancer Screening 10/12/2025 10/13/19 24, 08/27/2022, 08/22/2021, Additional history exists Cervical Cancer Screening: HPV 01/28/2029 01/29/2024, 05/23/2016 RSV Immunization Adult Patients (1 - 1-dose 75+ series) 2054 HIV Screening Completed 08/29/2011 HIB Vaccines Aged [...] AM EST Women's annual routine gynecological examination [facility] SCREENING DIGITAL Routine 10/13/2023 7:37 AM EDT Encounter for screening mammogram for malignant neoplasm of breast HIV SCREENING Routine 08/29/2011 from Last 3 Months or Most Recently Relevant to Health Maintenance Results * HPV with reflex genotype (01/29/2024 8:47 AM EST) HPV Negative Negative LAB MICROBIOLOGY METHOD 02/02/2024 8:23 AM EST [facility] Brushing/Spatula Cervix uteri structure / Unknown 01/29/2024 8:47 AM EST 02/01/2024 9:12 AM EST [facility] MOLECULAR DIAGNOSTICS O RDERABLES Final Result [facility] [address] [place] [address], * [facility] SCREENING DIGITAL (10/13/2023 7:37 AM EDT) Anatomical Region Laterality Modality Mammography 10/09/2023 1:37 PM EDT Narrative 10/13/2023 7:37 AM EDT [facility] Diagnostic Imaging Department [address] [place] [address] Patient: COLIN HAN /Age/Sex: 1980 - 43 - F Unit#: [id number] Location/Status: SPDIMAM/REG CLI Mnemonic/Ordering Site: [facility] Ordering Physician: DARIN CIFUENTES MD Glenda Screening Digital - 10/09/23 - 1407 Report Status:Signed HISTORY: The patient is a 43-year-old female presenting for routine screening mammography. FINDINGS: Full-field digital mammography of the breasts bilaterally consisting of tomosynthesis in MLO and CC projection is performed in the [employer] 2000-D unit. Computer aided detection utilizing the iCAD system was utilized. The breasts are again seen to be composed of a combination of fatty and fibroglandular elements (scattered areas of fibroglandular density, category B density as calculated with [employer] software), as also demonstrated on previous outside [...] Benign Finding PQRI CPT II 3342F Code 61710, 00810 PQRI 225 CPT II 7025F Dictating Physician: NAN CAVAZOS MD Electronically Signed by: NAN CAVAZOS MD Dic Date/Time: 10/13/23730 Sign date/Time: 07/30/24 0737 Procedure Note Nan Cavazos MD - 12/30/2023 [facility] Diagnostic Imaging Department [address] [place] [address] Patient: COLIN HAN D.O.B./Age/Sex: 1980 - 43 - F Unit#: [id number] Location/Status: [facility] CLI Mnemonic/Ordering Site: [facility] Ordering Physician: DARIN CIFUENTES MD Glenda Screening Digital - 10/09/23 - 1407 Report Status:Signed HISTORY: The patient is a 43-year-old female presenting for routinescreening mammography. FINDINGS: Full-field digital mammography of the breasts bilaterallyconsisting of tomosynthesis in MLO and CC projection is performed in the [employer] 2000-D unit. Computer aided detection utilizing the iCAD system wasutilized. The breasts are again seen to be composed of a combination of fatty and fibroglandular elements (scattered areas of fibroglandular density,category B density as calculated with [employer]veal Volpara software), as also demonstratedon previous outside [...] Benign Finding PQRI CPT II 3342F Code 64839, 93941 PQRI 225 CPT II 7025F Dictating Physician: NAN CAVAZOS MD Electronically Signed by: NAN CAVAZOS MD Dic Date/Time: 10/13/23 0731 Sign date/Time: 10/13/23 0737 us Darin Cifuentes MD IMG BI PROCEDURES Final Resul t * Hm HIV Screening (08/29/2011) HIV Screening Abstracted us Historical Provider HEALTH MAINTENANCE Final Result from Last 3 Months or Most Recently Relevant to Health Maintenance Insurance Care Teams Lead Driver Relationship Specialty Start Date End Date Darin Cifuentes MD [address] [place] [address] Dr Juárez [place] PCP - General Internal Medicine 12/10/18
== END 2025-02-28 16:28 | disposition home or self-care (01) ==
LOC: HO.HGI 15:52
PROVIDERS: PCP Internal Medicine; Visit Provider Nurse Practitioner
DX: Z01.818 Encounter for other preprocedural examination (principal); Z12.11 Encounter for screening for malignant neoplasm of colon
CPT/HCPCS: S0285